=== PATIENT | female | born 1990 | race Asian ===

== ENCOUNTER → 2017-09-30 | Outpatient (CLI) | payer OTHER ==
[~2017-09-30] MED LIST: DCL250 PO; IBUP-1050 PO
--- NOTE | 2017-09-30 15:15 | MAMMOGRAPHY REPORT ---
ULTRASOUND OF RIGHT BREAST: 09/30/2017 CLINICAL HISTORY: The patient reports intermittent pain in her right lower outer breast for approxima tely 1 week. She denies any skin erythema, fevers, or palpable lumps. History of prior surgery for ri ght breast mastitis December 2015. COMPARISON: Comparison is made to exam dated: 01/05/2016 ultrasound. Findings: Real-time, high-resolution ultrasound was performed of the area of pain pointed out by the patient in the right lower outer quadrant. Sonographically normal tissue is seen in this region, wit hout evidence of a mass or other suspicious sonographic abnormality. IMPRESSION: ACR BI-RADS CATEGORY 1: NEGATIVE No suspicious sonographic abnormality at the site of pain pointed out by the patient in the right low er outer quadrant. There is no sonographic evidence of malignancy. Recommend clinical follow-up for right breast pain. The patient was verbally notified of the results with the assistance of a [employer] interpreter over th e telephone. Cristina Steel M.D. ah/:09/30/2017 11:25:32 Cigar Head Pegger: Cristina Steel MD, [facility] letter sent: Normal 1/2 BI-RADS Code: ACR BI-RADS Category 1: Negative
== END | disposition home or self-care (01) ==
LOC: C.MAMM 11:00
PROVIDERS: ATTEND Family Medicine
DX: N64.4 Mastodynia (principal)